=== PATIENT | male | born 1980 | race Caucasian/White ===

== ENCOUNTER 2022-10-30 15:21 | Inpatient (IN) ==
--- NOTE | 2022-10-30 16:23 | Emergency Department Note ---
Impression & Plan Depression with suicidal ideation ED Provider Note NAME: YEE WARREN AGE: 42 SEX: M : 1980 ARRIVES VIA: Walk-In INFORMANT: Patient, ED PROVIDER(S): Dawood Vargas MD CHIEF COMPLAINT: Mental wellness concern, outpatient referral MEDICAL DECISION MAKING: Patient presents due to concern for mental wellness concerns and associated suicidal ideation with plan. Blood work was obtained along with urinalysis drug and toxicology screen. Patient's blood work shows a normal white count H&H and platelet count. Kidney function is unremarkable with normal electrolytes. Urinalysis negative for blood or infection urine drug screen salicylate Tylenol and alcohol negative. Patient was seen and evaluated by psych community case manager and referrals were made for inpatient treatment. Patient is currently voluntary. Patient was excepted to [facility] for inpatient psychiatric treatment. Prior /Outside records reviewed: None Differential diagnosis: Mood disorder, infection, hypoglycemia, electrolyte abnormalities, cardiac s ources, intracerebral event, toxicologic, trauma, neurologic, as well as other pathologies. HPI: Patient presents as an outpatient referral due to concern for suicidal ideation with plan to purchase a gun in order to harm himself. The patient states that he has been going through some marital issues and has been going to some point health from her marital counseling. Patient states that work is going okay but has been stressful "trying to juggle everything." Patient denies any access to guns or weapons at this time and does feel safe at home. Patient denies any HI or AVH. The patient states that his sleep is okay once he falls asleep but is not getting enough of it. Patient states that his appetite is okay. Patient states he is employed. Patient denies any alcohol tobacco or dr ug use. PAST MEDICAL HISTORY: No pertinent past medical history PAST SURGICAL HISTORY: No pertinent past surgical history SOCIAL HISTORY: , denies alcohol tobacco or drug use. Currently employed. HOME MEDICATIONS: See Below ALLERGIES: See Below VITALS: See Below PHYSICAL EXAMINATION: GENERAL: NAD, non-toxic. EYE EXAM: Normal conjunctiva. PERRL, no anisocoria and EOM's grossly intact w/o pain. OROPHARYNX: Moist mucus membranes, grossly normal dentition. NECK: Supple, no nuchal rigidity, no adenopathy, non-tender. No signs of meningismus. FROM of the neck with good chin to chest and neck extension. No stridor. LUNGS: Clear to auscultation. Normal chest wall mechanics. HEART: NSR, no MRG. ABDOMEN: Abdomen soft, non-tender, no masses, no rebound or guarding. BACK: No CVA TTP. SKIN: No rashes and no bruising. UPPER EXTREMITIES: Upper extremities are grossly normal. LOWER EXTREMITIES: Grossly normal, no edema. NEURO EXAM: A&O x3, cranial nerves II-XII grossly intact, normal speech, moves all 4 extremities. Psych: Depressed mood, poor eye contact, positive SI with plan, negative HI or AVH. 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 Required: No Beliefs That Will Affect Care: None Feels Safe at Home: Yes Gender Identity: Male Assistive Devices: Glasses Allergies Allergies Allergy/AdvReac Type Severity Reaction Status Date / Time No Known Allergies Allergy Unverified 10/30/22 17:22 Home Meds Home Medications Medication Instructions Recorded Confirmed azelaic acid 15 % topical gel 1 applic topical AMPM 10/30/22 10/30/22 Results & Data (ED) Vital Signs Vital Signs - 24 hr 10/30/22 15:29 Temperature 36.4 C L Temperature Source Temporal Artery Scan Pulse Rate 56 L Respiratory Rate 17 Blood Pressure 143/88 H Blood Pressure Mean 106 Pulse Oximetry 97 Oxygen Delivery Method Room Air Sepsis Recent Fever Within 48 Hours No Sepsis New/Unexplained Change in Mental Status N/A Sepsis Action Taken by Nursing No Action Required Home Medications Current Medication List: was personally reviewed by me Laboratory Data Attestation: I reviewed the patient's lab results. 10/30/22 15:50 10/30/22 15:50 Lab Results 10/30/22 10/30/22 10/30/22 Range/Units 15:50 15:50 15:50 WBC 6.09 (4.8-10.8) K/ul RBC 4.82 (4.70-6.10) M/uL Hgb 14.8 (14.0-18.0) g/dl Hct 41.6 L (42.0-52.0) % MCV 86.3 (80.0-100.0) fL MCH 30.7 (25.0-34.0) pg MCHC 35.6 (32.0-36.0) g/dL RDW Std Deviation 36.8 (36.4-46.3) fL RDW Coeff of Kathryn 11.7 (11.5-14.5) % Plt Count 310 (130-400) K/uL MPV 9.7 (9.4-12.4) fL Immature Gran % (Auto) 0.3 % Neut % (Auto) 69.5 % Lymph % (Auto) 18.7 % Simpson % (Auto) 10.0 % Eos % (Auto) 0.5 % Baso % (Auto) 1.0 % Neut # (Auto) 4.23 (1.40-6.50) K/uL Lymph # (Auto) 1.14 L (1.2-3.4) K/uL Simpson # (Auto) 0.61 H (0.11-0.59) K/uL Eos # (Auto) 0.03 (0-0.50) K/uL Baso # (Auto) 0.06 (0-0.2) K/uL Immature Gran # (Auto) 0.02 (0.01-0.20) K/uL Sodium 141 (136-145) mmol/L Potassium 3.6 (3.5-5.1) mmol/L Chloride 105 (98-107) mmol/L Carbon Dioxide 31 (21-32) mmol/L Anion Gap 5 (3-11) BUN 12 (6-23) mg/dl Creatinine 0.92 (0.6-1.4) mg/dl Est Cr Clr Drug Dosing 104.1 ml/min Est GFR ( Amer) 116.8 ml/min Est GFR (Non-Af Amer) 100.8 ml/min BUN/Creatinine Ratio 13.0 (10-20) Glucose 85 (70-99(Fasting)) mg/dl Calcium 9.6 (8.6-10.3) mg/dl Total Bilirubin 0.5 (0.2-1.0) mg/dl AST 17 (13-39) U/L ALT 13 (7-52) U/L Alkaline Phosphatase 40 (34-104) U/L Total Protein 7.2 (6.0-8.3) gm/dl Albumin 4.6 (3.4-5.0) gm/dl Globulin 2.6 (2.5-4.0) gm/dl Albumin/Globulin Ratio 1.8 (0.9-2) TSH 0.639 (0.300-4.500) uIu/ml Urine Color Urine Appearance (Clear) Urine pH (4.5-7.5) Ur Specific [place] (1.000-1.030) Urine Protein (Negative) Urine Glucose (UA) (Negative) Urine Ketones (Negative) Urine Blood (Negative) Urine Nitrite (Negative) Urine Bilirubin (Negative) Urine Urobilinogen (Negative) Ur Leukocyte Esterase (Negative) Salicylates (3.0-30) mg/dl Urine Opiates Screen (Neg) Ur Methadone, Qual (Neg) Acetaminophen (10-30) ug/ml Urine Barbiturates (Neg) Ur Phencyclidine (PCP) (Neg) U Amphetamin/Meth Scrn (Neg) MDMA (Ecstasy) Screen (Neg) U Benzodiazepines Scrn (Neg) Ur Cocaine Metabolite (Neg) U Marijuana (THC) Screen (Neg) Ethyl Alcohol mg/dL (<10.0) mg/dl SARS-CoV-2, RNA, NAAT (NEGATIVE) 10/30/22 10/30/22 10/30/22 Range/Units 15:50 15:50 15:50 WBC (4.8-10.8) K/ul RBC (4.70-6.10) M/uL Hgb (14.0-18.0) g/dl Hct (42.0-52.0) % MCV (80.0-100.0) fL MCH (25.0-34.0) pg MCHC (32.0-36.0) g/dL RDW Std Deviation (36.4-46.3) fL RDW Coeff of Kathryn (11.5-14.5) % Plt Count (130-400) K/uL MPV (9.4-12.4) fL Immature Gran % (Auto) % Neut % (Auto) % Lymph % (Auto) % Simpson % (Auto) % Eos % (Auto) % Baso % (Auto) % Neut # (Auto) (1.40-6.50) K/uL Lymph # (Auto) (1.2-3.4) K/uL Simpson # (Auto) (0.11-0.59) K/uL Eos # (Auto) (0-0.50) K/uL Baso # (Auto) (0-0.2) K/uL Immature Gran # (Auto) (0.01-0.20) K/uL Sodium (136-145) mmol/L Potassium (3.5-5.1) mmol/L Chloride (98-107) mmol/L Carbon Dioxide (21-32) mmol/L Anion Gap (3-11) BUN (6-23) mg/dl Creatinine (0.6-1.4) mg/dl Est Cr Clr Drug Dosing ml/min Est GFR ( Amer) ml/min Est GFR (Non-Af Amer) ml/min BUN/Creatinine Ratio (10-20) Glucose (70-99(Fasting)) mg/dl Calcium (8.6-10.3) mg/dl Total Bilirubin (0.2-1.0) mg/dl AST (13-39) U/L ALT (7-52) U/L Alkaline Phosphatase (34-104) U/L Total Protein (6.0-8.3) gm/dl Albumin (3.4-5.0) gm/dl Globulin (2.5-4.0) gm/dl Albumin/Globulin Ratio (0.9-2) TSH (0.300-4.500) uIu/ml Urine Color Urine Appearance (Clear) Urine pH (4.5-7.5) Ur Specific [place] (1.000-1.030) Urine Protein (Negative) Urine Glucose (UA) (Negative) Urine Ketones (Negative) Urine Blood (Negative) Urine Nitrite (Negative) Urine Bilirubin (Negative) Urine Urobilinogen (Negative) Ur Leukocyte Esterase (Negative) Salicylates < 3.0 L (3.0-30) mg/dl Urine Opiates Screen (Neg) Ur Methadone, Qual (Neg) Acetaminophen < 3 L (10-30) ug/ml Urine Barbiturates (Neg) Ur Phencyclidine (PCP) (Neg) U Amphetamin/Meth Scrn (Neg) MDMA (Ecstasy) Screen (Neg) U Benzodiazepines Scrn (Neg) Ur Cocaine Metabolite (Neg) U Marijuana (THC) Screen (Neg) Ethyl Alcohol mg/dL < 10.0 (<10.0) mg/dl SARS-CoV-2, RNA, NAAT NEGATIVE (NEGATIVE) 10/30/22 10/30/22 Range/Units 16:41 16:41 WBC (4.8-10.8) K/ul RBC (4.70-6.10) M/uL Hgb (14.0-18.0) g/dl Hct (42.0-52.0) % MCV (80.0-100.0) fL MCH (25.0-34.0) pg MCHC (32.0-36.0) g/dL RDW Std Deviation (36.4-46.3) fL RDW Coeff of Kathryn (11.5-14.5) % Plt Count (130-400) K/uL MPV (9.4-12.4) fL Immature Gran % (Auto) % Neut % (Auto) % Lymph % (Auto) % Simpson % (Auto) % Eos % (Auto) % Baso % (Auto) % Neut # (Auto) (1.40-6.50) K/uL Lymph # (Auto) (1.2-3.4) K/uL Simpson # (Auto) (0.11-0.59) K/uL Eos # (Auto) (0-0.50) K/uL Baso # (Auto) (0-0.2) K/uL Immature Gran # (Auto) (0.01-0.20) K/uL Sodium (136-145) mmol/L Potassium (3.5-5.1) mmol/L Chloride (98-107) mmol/L Carbon Dioxide (21-32) mmol/L Anion Gap (3-11) BUN (6-23) mg/dl Creatinine (0.6-1.4) mg/dl Est Cr Clr Drug Dosing ml/min Est GFR ( Amer) ml/min Est GFR (Non-Af Amer) ml/min BUN/Creatinine Ratio (10-20) Glucose (70-99(Fasting)) mg/dl Calcium (8.6-10.3) mg/dl Total Bilirubin (0.2-1.0) mg/dl AST (13-39) U/L ALT (7-52) U/L Alkaline Phosphatase (34-104) U/L Total Protein (6.0-8.3) gm/dl Albumin (3.4-5.0) gm/dl Globulin (2.5-4.0) gm/dl Albumin/Globulin Ratio (0.9-2) TSH (0.300-4.500) uIu/ml Urine Color Yellow Urine Appearance Clear (Clear) Urine pH 6.5 (4.5-7.5) Ur Specific [place] 1.006 (1.000-1.030) Urine Protein Negative (Negative) Urine Glucose (UA) Negative (Negative) Urine Ketones Negative (Negative) Urine Blood Negative (Negative) Urine Nitrite Negative (Negative) Urine Bilirubin Negative (Negative) Urine Urobilinogen Negative (Negative) Ur Leukocyte Esterase Negative (Negative) Salicylates (3.0-30) mg/dl Urine Opiates Screen Neg (Neg) Ur Methadone, Qual Neg (Neg) Acetaminophen (10-30) ug/ml Urine Barbiturates Neg (Neg) Ur Phencyclidine (PCP) Neg (Neg) U Amphetamin/Meth Scrn Neg (Neg) MDMA (Ecstasy) Screen Neg (Neg) U Benzodiazepines Scrn Neg (Neg) Ur Cocaine Metabolite Neg (Neg) U Marijuana (THC) Screen Neg (Neg) Ethyl Alcohol mg/dL (<10.0) mg/dl SARS-CoV-2, RNA, NAAT (NEGATIVE) Discharge Plan Visit Data Chief Complaint: Mental Health Evaluation Stated Complaint: DEPRESSION,SUICIDAL,MHE ED Provider: Dawood Vargas Discharge Problem: Depression with suicidal ideation Patient Disposition: Admitted As Inpatient Discharge Instructions Interventions: ED Discharge Assessment Last Done: 10/30/22 20:24
[2022-10-30 16:46] LABS: Basophils # (auto) 0.06 K/uL (0-0.2); Eosinophils # (auto) 0.03 K/uL (0-0.50); Eosinophils % (auto) 0.5 %; Hematocrit (blood only) 41.6 % (42.0-52.0); Hemoglobin 14.8 g/dl (14.0-18.0); Immature Granulocytes # (auto) 0.02 K/uL (0.01-0.20); Immature Granulocytes % (auto) 0.3 %; Lymphocytes # (auto) 1.14 K/uL (1.2-3.4); Lymphocytes % (auto) 18.7 %; Mean Corpuscular Hemoglobin 30.7 pg (25.0-34.0); Mean Corpuscular Hgb Conc 35.6 g/dL (32.0-36.0); Mean Corpuscular Volume 86.3 fL (80.0-100.0); Mean Platelet Volume 9.7 fL (9.4-12.4); Monocytes # (auto) 0.61 K/uL (0.11-0.59); Neutrophils # (auto) 4.23 K/uL (1.40-6.50); Neutrophils % (auto) 69.5 %; Platelet Count 310 K/uL (130-400); RDW Coefficient of Variation 11.7 % (11.5-14.5); RDW Standard Deviation 36.8 fL (36.4-46.3); Red Blood Count 4.82 M/uL (4.70-6.10); White Blood Count 6.09 K/ul (4.8-10.8)
[2022-10-30 16:56] LABS: Albumin Level 4.6 gm/dl (3.4-5.0); Bilirubin,Total 0.5 mg/dl (0.2-1.0); Calcium 9.6 mg/dl (8.6-10.3); Potassium 3.6 mmol/L (3.5-5.1)
[2022-10-30 17:01] LABS: Acetaminophen < 3 ug/ml (10-30); Salicylate < 3.0 mg/dl (3.0-30)
[2022-10-30 17:02] LABS: Albumin Globulin Ratio 1.8 (0.9-2); Creatinine Clr Calc Pharmacy 104.1 ml/min; Est GFR (African American) 116.8 ml/min; Est GFR (Non-African American) 100.8 ml/min; Globulin 2.6 gm/dl (2.5-4.0); Total Protein 7.2 gm/dl (6.0-8.3)
[2022-10-30 17:23] LABS: Appearance Urine Clear (Clear); Bilirubin Urine Negative (Negative); Blood Urine Negative (Negative); Color Urine Yellow; Glucose Urine UA Negative (Negative); Ketones Urine Negative (Negative); Leukocyte Esterase Urine Negative (Negative); Nitrite Urine Negative (Negative); Protein Urine Negative (Negative); Specific Gravity Urine 1.006 (1.000-1.030); Urobilinogen Urine Negative (Negative); pH Urine 6.5 (4.5-7.5)
[2022-10-30 17:52] LABS: Amphetamines+Metham, Urine Neg (Neg); Barbiturates, Urine Neg (Neg); Benzodiazepine, Urine Neg (Neg); Cocaine, Urine Neg (Neg); MDMA (Ecstacy), Urine Neg (Neg); Methadone, Urine Neg (Neg); Opiate, Urine Neg (Neg); Phencyclidine, Urine Neg (Neg)
[2022-10-30] MEDS ORDERED: ALUMINUM/MAGNESIUM SUSP 30 ML UDC PO PRN (21:24)
[2022-10-30] MEDS ORDERED: SODIUM CHLORIDE 0.65% NA SOLN 45 ML (OCEAN) PRN (21:24)
[2022-10-30] MEDS ORDERED: BISMUTH SUBSALICYLATE LIQD 236 ML PO PRN (21:24)
[2022-10-30] MEDS ORDERED: MAGNESIUM HYDROXIDE SUSP 30 ML UDC PO PRN (21:24)
[2022-10-30] MEDS ORDERED: ACETAMINOPHEN 325 MG TAB PO PRN (21:24)
[2022-10-30] MEDS ORDERED: hydrOXYzine HCl 25 MG TAB PO PRN ×2 (21:24)
--- NOTE | 2022-10-31 06:19 | History & Physical ---
Date of Service October 31, 2022 Impression / Recommendations Impression 42 year old man with no formal psychiatric history with worsening of depression and increasingly intrusive SI, now thinking about buying a gun, in the context of increased marriage strain and self-guilt and shame. Diagnostically most consistent with unspecified depression with differential including major depressive disorder with anxious distress with periods of increased irritability that seems to turn into self-directed harm versus possible BPAD type II given episode of elevated mood/increased risk taking/increased impulsivity this spring followed by ongoing periods of impulsivity and what he feels are dramatic mood shifts. He is deemed in need of psychiatric hospitalization for diagnostic clarification, safety and stabilization, medication management and development of further coping skills. Discussed medication treatment options including possible SSRI and/or mood stabilizer/augmentation such as abilify but first want to clarify possible BPAD type II with hypomanic episode. He is agreeable to fasting blood work and agrees to complete a mood disorder questionnaire to help with determining most appropriate medication route. (1) Depression with suicidal ideation: (2) Major depressive disorder with current active episode: Plan 10/31/2022: The patient was admitted to the [facility] ([facility] mental health unit) on q15 min checks (behavioral with suicide precautions) for safety. The patient will participate in group, recreational, and milieu therapies and will be offered additional individual and family sessions as clinically von ropriate. 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 Chief Complaint "I have intense feelings of guilt for what I did and shame for how I could do this". History of Present Illness Oliverio presents for psychiatric admission for worsening depression and SI with possible plans of purchasing a gun and fears he may impulsively act on these thoughts. His worsening mood and increasing SI over the last 2 weeks is in the context of multiple psychosocial stressors including current marital strain with worsening self-guilt related to this as well as juggling work and other res ponsibilities. He notes he can develop episodes of intense anger which he directs at himself by hitting himself up to a few times per week and sometimes scratches his arms noting this feels like "self-directed rage". He reports current depressive symptoms including low self-worth, shame, self-guilt, decreased attention to self-care, decreased sleep and SI. He is not currently prescribed any psychiatric medications. Psychiatric ROS notable for no current nor history of symptoms of psychosis, PTSD, nor eating disorder. History of social anxiety and at one point developed obsessional habit about constantly checking his email due to concern for missing something. Concern for possible episodes of brief mood elevations in the past as he notes he can get "very excited" about things he is interested in and in his 20s had similar impulsive episodes of anger where he broke a glass and hit a door but did a mindfulness-based stress reduction course which helped him for many years. This spring he recalls sleeping a little less (5-7 hours per night), felt "on top of the world", was less rule following compared to his usual self (recalls driving through yellow lights in his eagerness to get to work), increased drive to work/be productive, and his noticing that she felt like he was acting differently than his usual self. However, no clearly defined periods throughout time, rather briefer episodes of mood elevation. Additional recent history per ED CM note from 10/30/2022: "Today, patient was at an appointment with his marriage counselor, Cecilia Cooper at [facility] along with his ; and patient revealed that he has been having suicidal thoughts coming/going for the past week, denies any previous suicidal ideations or attempts. Patient was sent to the ED by the recommendation of his therapist for further evaluation and admission. Patient reports one minute he feels good, but very quickly everything can turn bad. When he feels like this he feels un safe with his thoughts and believes he could act out impulsively. Patient has had thoughts to buy a gun, but has not done so. Patient admits to having an emotional affair with another person over the past year and his learned about this, he has since ended that relationship. Patient is carrying a lot of guilt and shame, feeling he is not the person he thought he was and then causes him to have intense feelings of rage. Patient reports he dealt with these rage thoughts early in his marriage, but worked through them with outside help. Patient reports depressive symptoms as crying, feelings of helpless/hopelessness, self-devaluation, guilt, poor concentration and decrease sleep. Patient reports self-harm of slapping himself when he has these elevated moods." Past Psychiatric History Current Psychiatric Diagnosis: unspecified depressive disorder Outpatient Services: marriage counseling at [facility], intake for inidividual therapy on 11/18/2022 at [facility] Previous Psych Admissions: none Do You Have Access To A Gun?: No History of Previous Suicide Attempt: No Past Medication Trials: none Past Head Trauma/Neuro History History of Concussion/Seizure: No Allergies Allergy/AdvReac Type Severity Reaction Status Date / Time No Known Allergies Allergy Unverified 10/31/22 14:53 Home Medications Medication Instructions Recorded Confirmed Type azelaic acid 15 % topical gel 1 applic topical AMPM 10/30/22 10/30/22 History Family History Family History of: Other-List under Comment (father had episodes of anger at times) and Suicide Completion (paternal cousin) Alcohol History Hx of Alcohol Use Over the Past 12 Months: Yes (2-4x/month, 1-2 drinks) AUDIT Total Score: 2 Smoking Use Have You Smoked or Used Tobacco Products in the Last 30 Days: No Smoking Status: Never smoker Substance History Hx of Prescription Med Misuse Over the Past 12 Months: No Hx of Over the Counter Med Misuse Over the Past 12 Months: No Hx of Inhalent Misuse Over the Past 12 Months: No Hx of Organic Substance Use Over the Past 12 Months: No Hx of Illegal Substances/Street Drug Use Over Past 12 Months: No Problems as a Result of Past Substance Use: None Identified Personal History Living Arrangements: Home Highest Grade Completed: Graduate School ([employer] ) 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[employer]) Marital Status: Number Of Children: 2 sons Beliefs That Will Affect Care: None Current Legal Problems: No Hx Legal Problems: No Patient History Social History Smoking Status: Never smoker Preferred Language: Bhutanese Communication Ability: Effective Senior Principal Required: No Beliefs That Will Affect Care: None Feels Safe at Home: Yes Gender Identity: Male Assistive Devices: Glasses Review of Systems Review of Systems: All systems reviewed & are unremarkable except as noted in HPI & below Physical Exam Psychiatric: Orientation: alert and oriented x 3 Apperance: appropriately dressed and appropriately groomed Eye Contact: good eye contact Motor Behavior: no abnormal motor movements Speech: normal rate/rhythm/volume of speech Affect: + depressed affect and + anxious affect Mood: + depressed mood and + anxious mood Thought Process: goal directed thought process Thought Content: reality based without delusions Suicidal Thoughts: denies suicidal thoughts (feels safe in the hospital), denies suicidal plan and denies suicidal intent Homicidal Thoughts: denies homicidal thoughts Hallucinations: no auditory hallucinations and no visual hallucinations Cognition: recent memory grossly intact, remote memory grossly intact, attention grossly intact and language grossly intact Estimated Intelligence: consistent with education level Insight: + fair insight Judgment: + limited judgement Vital Signs (Past 24 Hours): Last Vital Signs Temp 36.7 C 10/30/22 20:56 Pulse 52 L 10/30/22 20:56 Resp 14 10/30/22 20:56 BP 136/84 10/30/22 20:56 Pulse Ox 99 10/30/22 20:56 O2 Del Method Room Air 10/30/22 20:56 Exam Statement: A physical exam was performed in the ED by Dr. Vargas for the purposes of medical clearance. I accept that physical as correct and adequate for the purposes of the inpatient physical exam. Results & Data ([facility]) Laboratory Results Laboratory Results - last 24 hr 10/30/22 10/30/22 10/30/22 15:50 15:50 15:50 WBC 6.09 RBC 4.82 Hgb 14.8 Hct 41.6 L MCV 86.3 MCH 30.7 MCHC 35.6 RDW Std Deviation 36.8 RDW Coeff of Kathryn 11.7 Plt Count 310 MPV 9.7 Immature Gran % (Auto) 0.3 Neut % (Auto) 69.5 Lymph % (Auto) 18.7 [place] % (Auto) 10.0 Eos % (Auto) 0.5 Baso % (Auto) 1.0 Neut # (Auto) 4.23 Lymph # (Auto) 1.14 L [place] # (Auto) 0.61 H Eos # (Auto) 0.03 Baso # (Auto) 0.06 Immature Gran # (Auto) 0.02 Sodium 141 Potassium 3.6 Chloride 105 Carbon Dioxide 31 Anion Gap 5 BUN 12 Creatinine 0.92 Est Cr Clr Drug Dosing 104.1 Est GFR ( Amer) 116.8 Est GFR (Non-Af Amer) 100.8 BUN/Creatinine Ratio 13.0 Glucose 85 Calcium 9.6 Total Bilirubin 0.5 AST 17 ALT 13 Alkaline Phosphatase 40 Total Protein 7.2 Albumin 4.6 Globulin 2.6 Albumin/Globulin Ratio 1.8 TSH 0.639 Urine Color Urine Appearance Urine pH Ur Specific Cyril Urine Protein Urine Glucose (UA) Urine Ketones Urine Blood Urine Nitrite Urine Bilirubin Urine Urobilinogen Ur Leukocyte Esterase Salicylates Urine Opiates Screen Ur Methadone, Qual Acetaminophen Urine Barbiturates Ur Phencyclidine (PCP) U Amphetamin/Meth Scrn MDMA (Ecstasy) Screen U Benzodiazepines Scrn Ur Cocaine Metabolite U Marijuana (THC) Screen Ethyl Alcohol mg/dL SARS-CoV-2, RNA, NAAT 10/30/22 10/30/22 10/30/22 15:50 15:50 15:50 WBC RBC Hgb Hct MCV MCH MCHC RDW Std Deviation RDW Coeff of Kathryn Plt Count MPV Immature Gran % (Auto) Neut % (Auto) Lymph % (Auto) [place] % (Auto) Eos % (Auto) Baso % (Auto) Neut # (Auto) Lymph # (Auto) [place] # (Auto) Eos # (Auto) Baso # (Auto) Immature Gran # (Auto) Sodium Potassium Chloride Carbon Dioxide Anion Gap BUN Creatinine Est Cr Clr Drug Dosing Est GFR ( Amer) Est GFR (Non-Af Amer) BUN/Creatinine Ratio Glucose Calcium Total Bilirubin AST ALT Alkaline Phosphatase Total Protein Albumin Globulin Albumin/Globulin Ratio TSH Urine Color Urine Appearance Urine pH Ur Specific C[place]il Urine Protein Urine Glucose (UA) Urine Ketones Urine Blood Urine Nitrite Urine Bilirubin Urine Urobilinogen Ur Leukocyte Esterase Salicylates < 3.0 L Urine Opiates Screen Ur Methadone, Qual Acetaminophen < 3 L Urine Barbiturates Ur Phencyclidine (PCP) U Amphetamin/Meth Scrn MDMA (Ecstasy) Screen U Benzodiazepines Scrn Ur Cocaine Metabolite U Marijuana (THC) Screen Ethyl Alcohol mg/dL < 10.0 SARS-CoV-2, RNA, NAAT NEGATIVE 10/30/22 10/30/22 16:41 16:41 WBC RBC Hgb Hct MCV MCH MCHC RDW Std Deviation RDW Coeff of Kathryn Plt Count MPV Immature Gran % (Auto) Neut % (Auto) Lymph % (Auto) [place] % (Auto) Eos % (Auto) Baso % (Auto) Neut # (Auto) Lymph # (Auto) [place] # (Auto) Eos # (Auto) Baso # (Auto) Immature Gran # (Auto) Sodium Potassium Chloride Carbon Dioxide Anion Gap BUN Creatinine Est Cr Clr Drug Dosing Est GFR ( Amer) Est GFR (Non-Af Amer) BUN/Creatinine Ratio Glucose Calcium Total Bilirubin AST ALT Alkaline Phosphatase Total Protein Albumin Globulin Albumin/Globulin Ratio TSH Urine Color Yellow Urine Appearance Clear Urine pH 6.5 Ur Specific Cyril 1.006 Urine Protein Negative Urine Glucose (UA) Negative Urine Ketones Negative Urine Blood Negative Urine Nitrite Negative Urine Bilirubin Negative Urine Urobilinogen Negative Ur Leukocyte Esterase Negative Salicylates Urine Opiates Screen Neg Ur Methadone, Qual Neg Acetaminophen Urine Barbiturates Neg Ur Phencyclidine (PCP) Neg U Amphetamin/Meth Scrn Neg MDMA (Ecstasy) Screen Neg U Benzodiazepines Scrn Neg Ur Cocaine Metabolite Neg U Marijuana (THC) Screen Neg Ethyl Alcohol mg/dL SARS-CoV-2, RNA, NAAT Current Inpatient Medications Current Inpatient Medications: Current Inpatient Medications Acetaminophen (Acetaminophen 325 Mg Tab) 650 mg PO Q4H PRN PRN Reason: Headache or Minor Fever Stop: 11/29/22 21:23 Al Hydrox/Mg Hydrox/Simethicone (Aluminum/Magnesium Susp 30 Ml Udc) 30 ml PO Q4H PRN PRN Reason: GI Upset Stop: 11/29/22 21:23 Bismuth Subsalicylate (Bismuth Subsalicylate Liqd 236 Ml) 15 ml PO PRN PRN PRN Reason: Loose Stool Stop: 11/29/22 21:23 Hydroxyzine HCl (Hydroxyzine Hcl 25 Mg Tab) 50 mg PO HSZ PRN PRN Reason: Insomnia Stop: 11/29/22 21:23 Hydroxyzine HCl (Hydroxyzine Hcl 25 Mg Tab) 25 mg PO Q4H PRN PRN Reason: Anxiety Stop: 11/29/22 21:23 Magnesium Hydroxide (Magnesium Hydroxide Susp 30 Ml Udc) 30 ml PO DAILY PRN PRN Reason: Constipation Stop: 11/29/22 21:23 Sodium Chloride (Sodium Chloride 0.65% Na Soln 45 Ml ([place])) 1 - 2 sprays NA PRN PRN PRN Reason: Nasal Dryness/Congestion Stop: 11/29/22 21:23
[2022-11-01 07:56] LABS: Chol HDL Ratio 2.9 (0-5)
[2022-11-01] MEDS: ARIPiprazole 5 MG TAB PO SCH (13:34)
--- NOTE | 2022-11-01 15:10 | Psychiatric Progress Note ---
Date of Service November 01, 2022 Impression / Recommendations Impression 42 year old man with no formal psychiatric history with worsening of depression and increasingly intrusive SI, now thinking about buying a gun, in the context of increased marriage strain and self-guilt and shame. Diagnostically most consistent with unspecified depression with differential including major depressive disorder with anxious distress with periods of increased irritability that seems to turn into self-directed harm versus possible BPAD type II given episode of elevated mood/increased risk taking/increased impulsivity this spring followed by ongoing periods of impulsivity and what he feels are dramatic mood shifts. He is deemed in need of psychiatric hospitalization for diagnostic clarification, safety and stabilization, medication management and development of further coping skills. 11/01/22: Reviewed impression by Dr. Sterling in italics. appears mainly flat on unit. (1) Depression with suicidal ideation: (2) Major depressive disorder with current active episode: Plan 11/01/2022: Risks/benefits/alternatives were reviewed re: antipsychotics for mood/depression. Discussion included but was not limited to metabolic side effects, risks of TD and suicidal thoughts. There were no abnormal motor movements at baseline. Abilify 2.5 mg daily to start today. 10/31/2022: The patient was admitted to the [facility] ([facility] inpatient mental health unit) on q15 min checks (behavioral with suicide precautions) for safety. The patient will participate in group, recreational, and milieu therapies and will be offered additional individual and family sessions as clinically appropriate. 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, engaging in therapy, willing to get treatment Needs: safety and stabilization, medication adjustment, additional coping skills, increased outpatient services Suicide Risk Level Suicide Risk Level: High-Moderate (q15 min suicide checks) Risk Factors Assessment Male: Yes : Yes Do You Have Access To A Gun?: No Health Problems: No Mental Health Diagnoses: Yes Substance Use Disorders: No Previous Attempt: No Family History of Suicide: No Previous Psychiatric Hospitalization: No Protective Factors Assessment : Yes (but strained) 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 Chief Complaint "these changes went on for a year before I really noticed." Review of Systems Sleep Information Total Hours of Sleep: 6.5 Sleep Comments: pt on q-15 minute checks Meal Information Percent Meal Consumed - Breakfast: 100 Percent Meal Consumed - Lunch: 100 Percent Meal Consumed - Dinner: 100 Subjective Subjective Patient was seen & assessed and interval progress reviewed with nursing and social work. Reviewed mood disorder questionnaire as patient endorsed atypical symptoms of depression with irritability, more impulsive behavior. As none of the behaviors were extreme in that noticed by people other than , he expressed he is unsure what was making himself feel better/acknowledged when not feeling that at home vs. true increase in goal directed behavior. His guilt and his shame have increased since starting marital therapy which then triggered SI. Reviewed labs and he is agreeable to trial of Abilify as discussed yesterday. 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 He was not able to denote how many hours of work he was working a week, admitted much of the time was related to the "emotional affair." Physical Exam Psychiatric Orientation: alert and oriented x 3 Apperance: appropriately dressed and appropriately groomed Eye Contact: good eye contact Motor Behavior: no abnormal motor movements Speech: normal rate/rhythm/volume of speech Affect: + depressed affect Mood: + depressed mood Thought Process: goal directed thought process Thought Content: reality based without delusions Suicidal Thoughts: denies suicidal thoughts Homicidal Thoughts: denies homicidal thoughts Hallucinations: no auditory hallucinations and no visual hallucinations Cognition: attention grossly intact and language grossly intact Estimated Intelligence: consistent with education level Insight: + fair insight Judgment: + limited judgement Vital Signs (Past 24 Hours) Last Vital Signs Temp 36.6 C 11/01/22 06:39 Pulse 60 11/01/22 06:40 Resp 16 11/01/22 06:39 BP 129/85 11/01/22 06:40 Pulse Ox 99 10/30/22 20:56 O2 Del Method Room Air 10/30/22 20:56 Results & Data ([facility]) Laboratory Results Laboratory Results - last 24 hr 11/01/22 07:15 Fasting Glucose 88 Triglycerides 64 Cholesterol 156 LDL Cholesterol, Calc 90 VLDL Cholesterol, Calc 13 HDL Cholesterol 53 Cholesterol/HDL Ratio 2.9 Current Inpatient Medications Current Inpatient Medications: Current Inpatient Medications Acetaminophen (Acetaminophen 325 Mg Tab) 650 mg PO Q4H PRN PRN Reason: Headache or Minor Fever Stop: 11/29/22 21:23 Al Hydrox/Mg Hydrox/Simethicone (Aluminum/Magnesium Susp 30 Ml Udc) 30 ml PO Q4H PRN PRN Reason: GI Upset Stop: 11/29/22 21:23 Aripiprazole (Aripiprazole 5 Mg Tab) 2.5 mg PO QAM SHANIQUA Stop: 12/01/22 13:19 Last Admin: 11/01/22 13:34 Dose: 2.5 mg Bismuth Subsalicylate (Bismuth Subsalicylate Liqd 236 Ml) 15 ml PO PRN PRN PRN Reason: Loose Stool Stop: 11/29/22 21:23 Hydroxyzine HCl (Hydroxyzine Hcl 25 Mg Tab) 50 mg PO HSZ PRN PRN Reason: Insomnia Stop: 11/29/22 21:23 Hydroxyzine HCl (Hydroxyzine Hcl 25 Mg Tab) 25 mg PO Q4H PRN PRN Reason: Anxiety Stop: 11/29/22 21:23 Magnesium Hydroxide (Magnesium Hydroxide Susp 30 Ml Udc) 30 ml PO DAILY PRN PRN Reason: Constipation Stop: 11/29/22 21:23 Sodium Chloride (Sodium Chloride 0.65% Na Soln 45 Ml ([place])) 1 - 2 sprays NA PRN PRN PRN Reason: Nasal Dryness/Congestion Stop: 11/29/22 21:23 Mental Health & Subst Abuse Tx Therapist Name of Therapist: [facility] - Dr. Fernando Therapist's Date of Therapist Appointment: 11/18/2022 Time of Therapist Appointment: 1 PM Therapy Appointment Comment: [address], [place] [id number] Shanker Out Name of Shanker Out: none Post Discharge Appointments Primary Care Physician Name Of Family Doctor/PCP: [facility] - Dr. Ha Harvey Primary [facility] Date of Future Appointment with PCP: 11/13/22 Time of Appointment with PCP: arrive by 3:05 PM Provider Appointment Comment: [id number], [place] [address] Contact Information Discharge Discharge Address: [address], [place] [address]
[2022-11-02] MEDS: ARIPiprazole 5 MG TAB PO SCH (08:21)
--- NOTE | 2022-11-02 13:39 | Psychiatric Progress Note ---
Date of Service November 02, 2022 Impression / Recommendations Impression 42 year old man with no formal psychiatric history with worsening of depression and increasingly intrusive SI, now thinking about buying a gun, in the context of increased marriage strain and self-guilt and shame. Diagnostically most consistent with unspecified depression with differential including major depressive disorder with anxious distress with periods of increased irritability that seems to turn into self-directed harm versus possible BPAD type II given episode of elevated mood/increased risk taking/increased impulsivity this spring followed by ongoing periods of impulsivity and what he feels are dramatic mood shifts. He is deemed in need of psychiatric hospitalization for diagnostic clarification, safety and stabilization, medication management and development of further coping skills. 11/02/22: Reviewed impression by Dr. Sterling in italics. tolerating Abilify (1) Depression with suicidal ideation: (2) Major depressive disorder with current active episode: Plan 11/02/2022: continue Abilify trial. 11/01/2022: Risks/benefits/alternatives were reviewed re: antipsychotics for mood/depression. Discussion included but was not limited to metabolic side effects, risks of TD and suicidal thoughts. There were no abnormal motor movements at baseline. Abilify 2.5 mg daily to start today. 10/31/2022: The patient was admitted to the [facility] ([facility] inpatient mental health unit) on q15 min checks (behavioral with suicide precautions) for safety. The patient will participate in group, recreational, and milieu therapies and will be offered additional individual and family sessions as clinically appropriate. 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, engaging in therapy, willing to get treatment Needs: safety and stabilization, medication adjustment, additional coping skills, increased outpatient services Suicide Risk Level Suicide Risk Level: Moderate (q15 min suicide checks) Risk Factors Assessment Male: Yes : Yes Do You Have Access To A Gun?: No Health Problems: No Mental Health Diagnoses: Yes Substance Use Disorders: No Previous Attempt: No Family History of Suicide: No Previous Psychiatric Hospitalization: No Protective Factors Assessment : Yes (but strained) 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 Chief Complaint marital stressors Review of Systems Sleep Information Total Hours of Sleep: 7 Sleep Comments: pt on q-15 minute checks Meal Information Percent Meal Consumed - Breakfast: 100 Percent Meal Consumed - Lunch: 100 Percent Meal Consumed - Dinner: 100 Subjective Subjective Patient was seen & assessed and interval progress reviewed with nursing and social work. Appropriate in the milieu and during visit with . No evidence of impulse control issue. Patient is tolerating Abilify with minimal afternoon sedation. Discussed parameters for family meeting as his main barriers to safety planning are fears about how they continue to process/talk about their issues--he has been working from home and allowing his phone to be tracked, staying up until 2-3 am, etc but not sustainable. Physical Exam Psychiatric Orientation: alert and oriented x 3 Apperance: appropriately dressed and appropriately groomed Eye Contact: good eye contact Motor Behavior: no abnormal motor movements Speech: normal rate/rhythm/volume of speech Affect: + depressed affect Mood: + depressed mood Thought Process: goal directed thought process Thought Content: reality based without delusions Suicidal Thoughts: denies suicidal thoughts Homicidal Thoughts: denies homicidal thoughts Hallucinations: no auditory hallucinations and no visual hallucinations Cognition: attention grossly intact and language grossly intact Estimated Intelligence: consistent with education level Vital Signs (Past 24 Hours) Last Vital Signs Temp 36.6 C 11/02/22 06:39 Pulse 62 11/02/22 06:39 Resp 16 11/02/22 06:39 BP 119/70 11/02/22 06:39 Pulse Ox 99 10/30/22 20:56 O2 Del Method Room Air 10/30/22 20:56 Results & Data ([facility]) Current Inpatient Medications Current Inpatient Medications: Current Inpatient Medications Acetaminophen (Acetaminophen 325 Mg Tab) 650 mg PO Q4H PRN PRN Reason: Headache or Minor Fever Stop: 11/29/22 21:23 Al Hydrox/Mg Hydrox/Simethicone (Aluminum/Magnesium Susp 30 Ml Udc) 30 ml PO Q4H PRN PRN Reason: GI Upset Stop: 11/29/22 21:23 Aripiprazole (Aripiprazole 5 Mg Tab) 2.5 mg PO QAM SHANIQUA Stop: 12/01/22 13:19 Last Admin: 11/02/22 08:21 Dose: 2.5 mg Bismuth Subsalicylate (Bismuth Subsalicylate Liqd 236 Ml) 15 ml PO PRN PRN PRN Reason: Loose Stool Stop: 11/29/22 21:23 Hydroxyzine HCl (Hydroxyzine Hcl 25 Mg Tab) 50 mg PO HSZ PRN PRN Reason: Insomnia Stop: 11/29/22 21:23 Hydroxyzine HCl (Hydroxyzine Hcl 25 Mg Tab) 25 mg PO Q4H PRN PRN Reason: Anxiety Stop: 11/29/22 21:23 Magnesium Hydroxide (Magnesium Hydroxide Susp 30 Ml Udc) 30 ml PO DAILY PRN PRN Reason: Constipation Stop: 11/29/22 21:23 Sodium Chloride (Sodium Chloride 0.65% Na Soln 45 Ml ([place])) 1 - 2 sprays NA PRN PRN PRN Reason: Nasal Dryness/Congestion Stop: 11/29/22 21:23 Mental Health & Subst Abuse Tx Therapist [facility] Therapist's Date of Therapist Appointment: 11/18/2022 Time of Therapist Appointment: 1 PM Therapy Appointment Comment: [address], [place] [address] Food Scientist Name of Food Scientist: none Post Discharge Appointments Primary Care Physician Name Of Family Doctor/PCP: [facility] Dr. Ha Harvey Primary Care Date of Future Appointment with PCP: 11/13/22 Time of Appointment with PCP: arrive by 3:05 PM Provider Appointment Comment: [id number], [place] [address] Contact Information Discharge Discharge Address: [address], [place] [address]
[2022-11-03] MEDS: ARIPiprazole 5 MG TAB PO SCH (08:19)
--- NOTE | 2022-11-03 14:28 | Psychiatric Progress Note ---
Date of Service November 03, 2022 Impression / Recommendations Impression 42 year old man with no formal psychiatric history with worsening of depression and increasingly intrusive SI, now thinking about buying a gun, in the context of increased marriage strain and self-guilt and shame. Diagnostically most consistent with unspecified depression with differential including major depressive disorder with anxious distress with periods of increased irritability that seems to turn into self-directed harm versus possible BPAD type II given episode of elevated mood/increased risk taking/increased impulsivity this spring followed by ongoing periods of impulsivity and what he feels are dramatic mood shifts. He is deemed in need of psychiatric hospitalization for diagnostic clarification, safety and stabilization, medication management and development of further coping skills. 11/03/22: Reviewed impression by Dr. Sterling in italics. processing family meeting (1) Depression with suicidal ideation: (2) Major depressive disorder with current active episode: Plan 11/03/2022: continue Abilify 2.5 mg as had some mild sedation, finalize safety planning 11/02/2022: continue Abilify trial. 11/01/2022: Risks/benefits/alternatives were reviewed re: antipsychotics for mood/depression. Discussion included but was not limited to metabolic side effects, risks of TD and suicidal thoughts. There were no abnormal motor mov ements at baseline. Abilify 2.5 mg daily to start today. 10/31/2022: The patient was admitted to the [facility] ([facility] mental health unit) on q15 min checks (behavioral with suicide precautions) for safety. The patient will participate in group, recreational, and milieu therapies and will be offered additional individual and family sessions as clinically appropriate. 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, engaging in therapy, willing to get treatment Needs: safety and stabilization, medication adjustment, additional coping skills, increased outpatient services Suicide Risk Level Suicide Risk Level: Moderate (q15 min suicide checks) Risk Factors Assessment Male: Yes : Yes Do You Have Access To A Gun?: No Health Problems: No Mental Health Diagnoses: Yes Substance Use Disorders: No Previous Attempt: No Family History of Suicide: No Previous Psychiatric Hospitalization: No Protective Factors Assessment : Yes (but strained) 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 Chief Complaint "I'm processing alot" Review of Systems Sleep Information Total Hours of Sleep: 6.5 Sleep Comments: pt on q-15 minute checks Meal Information Percent Meal Consumed - Breakfast: 100 Percent Meal Consumed - Lunch: 100 Percent Meal Consumed - Dinner: 100 Subjective Subjective Patient was seen & assessed and interval progress reviewed with treatment team. Joined family meeting with to discuss dx, boundaries, and medication plan. Patient was respectful/took notes. Obviously rebuilding trust and discussed using stress scale to depersonalize interactions when need a break/some limits on their more heavy discussions outside of therapy. Tolerating medication. Physical Exam Psychiatric Orientation: alert and oriented x 3 Apperance: appropriately dressed and appropriately groomed Eye Contact: good eye contact Motor Behavior: no abnormal motor movements Speech: normal rate/rhythm/volume of speech Affect: + depressed affect Mood: + depressed mood Thought Process: goal directed thought process Thought Content: reality based without delusions Suicidal Thoughts: denies suicidal thoughts, denies suicidal plan and denies suicidal intent Homicidal Thoughts: denies homicidal thoughts Hallucinations: no auditory hallucinations and no visual hallucinations Cognition: recent memory grossly intact, remote memory grossly intact, attention grossly intact and language grossly intact Estimated Intelligence: consistent with education level Insight: + fair insight Vital Signs (Past 24 Hours) Last Vital Signs Temp 36.7 C 11/03/22 06:35 Pulse 76 11/03/22 06:35 Resp 16 11/03/22 06:35 BP 138/82 11/03/22 06:35 Pulse Ox 99 10/30/22 20:56 O2 Del Method Room Air 10/30/22 20:56 Results & Data ([facility]) Current Inpatient Medications Current Inpatient Medications: Current Inpatient Medications Acetaminophen (Acetaminophen 325 Mg Tab) 650 mg PO Q4H PRN PRN Reason: Headache or Minor Fever Stop: 11/29/22 21:23 Al Hydrox/Mg Hydrox/Simethicone (Aluminum/Magnesium Susp 30 Ml Udc) 30 ml PO Q4H PRN PRN Reason: GI Upset Stop: 11/29/22 21:23 Aripiprazole (Aripiprazole 5 Mg Tab) 2.5 mg PO QAM SHANIQUA Stop: 12/01/22 13:19 Last Admin: 11/03/22 08:19 Dose: 2.5 mg Bismuth Subsalicylate (Bismuth Subsalicylate Liqd 236 Ml) 15 ml PO PRN PRN PRN Reason: Loose Stool Stop: 11/29/22 21:23 Hydroxyzine HCl (Hydroxyzine Hcl 25 Mg Tab) 50 mg PO HSZ PRN PRN Reason: Insomnia Stop: 11/29/22 21:23 Hydroxyzine HCl (Hydroxyzine Hcl 25 Mg Tab) 25 mg PO Q4H PRN PRN Reason: Anxiety Stop: 11/29/22 21:23 Magnesium Hydroxide (Magnesium Hydroxide Susp 30 Ml Udc) 30 ml PO DAILY PRN PRN Reason: Constipation Stop: 11/29/22 21:23 Sodium Chloride (Sodium Chloride 0.65% Na Soln 45 Ml ([place])) 1 - 2 sprays NA PRN PRN PRN Reason: Nasal Dryness/Congestion Stop: 11/29/22 21:23 Mental Health & Subst Abuse Tx Psychiatrist Name of Psychiatrist: Laurel Jung PA-C Psychiatrist's Date Of Appointment With Psychiatric Provider: 12/04/22 Time of Appointment with Psychiatrist: 8:45 AM Psychiatric Appointment Comment: [address], [place] [address] Therap[facility] - Dr. Fernando Therapist's Date of Therapist Appointment: 11/18/2022 Time of Therapist Appointment: 1 PM Therapy Appointment Comment: [address], [place] [address] Headstart Teacher Name of Headstart Teacher: none Post Discharge Appointments Primary Care Physician Name Of Family Doctor/PCP: [facility] Dr. Ha Blanca Primary Care Date of Future Appointment with PCP: 11/13/22 Time of Appointment with PCP: arrive by 3:05 PM Provider Appointment Comment: [phone], [place] [address] Contact Information Discharge Discharge Address: [address], [place] [address]
[2022-11-04] MEDS: ARIPiprazole 5 MG TAB PO SCH (07:44)
--- NOTE | 2022-11-04 15:05 | Discharge Summary ---
Date of Service November 04, 2022 History of Present Illness As per Dr. Sterling on admission: Oliverio presents for psychiatric admission for worsening depression and SI with possible plans of purchasing a gun and fears he may impulsively act on these thoughts. His worsening mood and increasing SI over the last 2 weeks is in the context of multiple psychosocial stressors including current marital strain with worsening self-guilt related to this as well as juggling work and other responsibilities. He notes he can develop episodes of intense anger which he directs at himself by hitting himself up to a few times per week and sometimes scratches his arms noting this feels like "self-directed rage". He reports cu rrent depressive symptoms including low self-worth, shame, self-guilt, decreased attention to self-care, decreased sleep and SI. He is not currently prescribed any psychiatric medications. Psychiatric ROS notable for no current nor history of symptoms of psychosis, PTSD, nor eating disorder. History of social anxiety and at one point developed obsessional habit about constantly checking his email due to concern for missing something. Concern for possible episodes of brief mood elevations in the past as he notes he can get "very excited" about things he is interested in and in his 20s had similar impulsive episodes of anger where he broke a glass and hit a door but did a mindfulness-based stress reduction course which helped him for many years. This spring he recalls sleeping a little less (5-7 hours per night), felt "on top of the world", was less rule following compared to his usual self (recalls driving through yellow lights in his eagerness to get to work), increased drive to work/be productive, and his noticing that she felt like he was acting differently than his usual self. However, no clearly defined periods throughout time, rather briefer episodes of mood elevation. Additional recent history per ED CM note from 10/30/2022: "Today, patient was at an appointment with his marriage counselor, Cecilia Cooper at [facility] along with his ; and patient revealed that he has been having suicidal thoughts coming/going for the past week, denies any previous suicidal ideations or attempts. Patient was sent to the ED by the recommendation of his therapist for further evaluation and admission. Patient reports one minute he feels good, but very quickly everything can turn bad. When he feels like this he feels unsafe with his thoughts and believes he could act out impulsively. Patient has had thoughts to buy a gun, but has not done so. Patient admits to having an emotional affair with another person over the past year and his learned about this, he has since ended that relationship. Patient is carrying a lot of guilt and shame, feeling he is not the person he thought he was and then causes him to have intense feelings of rage. Patient reports he dealt with these rage thoughts early in his marriage, but worked through them with outside help. Patient reports depressive symptoms as crying, feelings of helpless/hopelessness, self-devaluation, guilt, poor concentration and decrease sleep. Patient reports self-harm of slapping himself when he has these elevated moods." Physical Exam Psychiatric See admission H&P and DOD assessment. Vital Signs (Past 24 Hours) Last Vital Signs Temp 37 C 11/04/22 09:43 Pulse 52 L 11/04/22 09:43 Resp 16 11/04/22 09:43 BP 136/84 11/04/22 09:43 Pulse Ox 99 11/04/22 09:43 O2 Del Method Room Air 10/30/22 20:56 Principal Diagnosis major depressive disorder Psychiatric Data See daily stay summary. In short, safety was maintained and the patient was cooperative with care. Medication changes included a trial of Abilify and they tolerated this well with plan to increase to 5 mg upon discharge. A family s ession was held with the patient's to discuss diagnostic impressions and discuss boundaries/transition home. A safety plan was completed prior to discharge. Oliverio's symptoms, primarily personality change, started approximately 10 months coinciding with finishing [employer] and transitioning to various promotions. He initially noted stress/anxiety then a period of hyperproductivity then became more depressed, primarily irritability as starting couples therapy due to shame/guilt over marital issues and dealing with higher level of expressed emotion in the marriage. Although he did not meet criteria for bipolar II, it was determined his depressive features may respond better/more quickly to a mood stabilizer with future consideration for a more traditional antidepressant trial. Day of Discharge Assessment Today the patient voices readiness for discharge. They note improvement in mood and deny thoughts to harm self or others. Thoughts remain organized and they are improved from admission. There is no evidence of psychosis. They agree to take mediations as prescribed and keep follow-up appointments. They are stable for discharge to outpatient level of care. Transition of Care Transition Of Care Record: was reviewed with the patient Advance Directives Advance Directives Information Provided: Yes Advance Directives: No Mental Health Advance Directive: No Advance Directives on File: No Living Will: No Power of Director Agency & Strategic Partnerships: No Advance Directives Reason:: Declines as Mental Health Visit. Suicide Risk Level Suicide Risk Level Comments: Suicide risk at discharge is deemed low as the patient is no longer requiring 24-hr monitoring, has a safety plan, and is free of suicidal ideation at discharge. 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) Stable Relationships: Yes Good Rapport with Provider: Yes Tobacco Cessation at Discharge Tobacco Cessation Medication Prescribed at Discharge: Not Applicable/Non-Smoker Total Time Total Time Spent: Greater Than 30 Minutes Total Time Includes: Examination of the patient, Discharge Planning and Medication Reconciliation Discharge Data Lab Results 10/30/22 10/30/22 10/30/22 15:50 15:50 15:50 WBC 6.09 RBC 4.82 Hgb 14.8 Hct 41.6 L MCV 86.3 MCH 30.7 MCHC 35.6 RDW Std Deviation 36.8 RDW Coeff of Kathryn 11.7 Plt Count 310 MPV 9.7 Immature Gran % (Auto) 0.3 Neut % (Auto) 69.5 Lymph % (Auto) 18.7 [place] % (Auto) 10.0 Eos % (Auto) 0.5 Baso % (Auto) 1.0 Neut # (Auto) 4.23 Lymph # (Auto) 1.14 L [place] # (Auto) 0.61 H Eos # (Auto) 0.03 Baso # (Auto) 0.06 Immature Gran # (Auto) 0.02 Sodium 141 Potassium 3.6 Chloride 105 Carbon Dioxide 31 Anion Gap 5 BUN 12 Creatinine 0.92 Est Cr Clr Drug Dosing 104.1 Est GFR ( Amer) 116.8 Est GFR (Non-Af Amer) 100.8 BUN/Creatinine Ratio 13.0 Glucose 85 Fasting Glucose Calcium 9.6 Total Bilirubin 0.5 AST 17 ALT 13 Alkaline Phosphatase 40 Total Protein 7.2 Albumin 4.6 Globulin 2.6 Albumin/Globulin Ratio 1.8 Triglycerides Cholesterol LDL Cholesterol, Calc VLDL Cholesterol, Calc HDL Cholesterol Cholesterol/HDL Ratio TSH 0.639 Urine Color Urine Appearance Urine pH Ur Specific [place] Urine Protein Urine Glucose (UA) Urine Ketones Urine Blood Urine Nitrite Urine Bilirubin Urine Urobilinogen Ur Leukocyte Esterase Salicylates Urine Opiates Screen Ur Methadone, Qual Acetaminophen Urine Barbiturates Ur Phencyclidine (PCP) U Amphetamin/Meth Scrn MDMA (Ecstasy) Screen U Benzodiazepines Scrn Ur Cocaine Metabolite U Marijuana (THC) Screen Ethyl Alcohol mg/dL SARS-CoV-2, RNA, NAAT 10/30/22 10/30/22 10/30/22 15:50 15:50 15:50 WBC RBC Hgb Hct MCV MCH MCHC RDW Std Deviation RDW Coeff of Kathryn Plt Count MPV Immature Gran % (Auto) Neut % (Auto) Lymph % (Auto) [place] % (Auto) Eos % (Auto) Baso % (Auto) Neut # (Auto) Lymph # (Auto) [place] # (Auto) Eos # (Auto) Baso # (Auto) Immature Gran # (Auto) Sodium Potassium Chloride Carbon Dioxide Anion Gap BUN Creatinine Est Cr Clr Drug Dosing Est GFR ( Amer) Est GFR (Non-Af Amer) BUN/Creatinine Ratio Glucose Fasting Glucose Calcium Total Bilirubin AST ALT Alkaline Phosphatase Total Protein Albumin Globulin Albumin/Globulin Ratio Triglycerides Cholesterol LDL Cholesterol, Calc VLDL Cholesterol, Calc HDL Cholesterol Cholesterol/HDL Ratio TSH Urine Color Urine Appearance Urine pH Ur Specific [place] Urine Protein Urine Glucose (UA) Urine Ketones Urine Blood Urine Nitrite Urine Bilirubin Urine Urobilinogen Ur Leukocyte Esterase Salicylates < 3.0 L Urine Opiates Screen Ur Methadone, Qual Acetaminophen < 3 L Urine Barbiturates Ur Phencyclidine (PCP) U Amphetamin/Meth Scrn MDMA (Ecstasy) Screen U Benzodiazepines Scrn Ur Cocaine Metabolite U Marijuana (THC) Screen Ethyl Alcohol mg/dL < 10.0 SARS-CoV-2, RNA, NAAT NEGATIVE 10/30/22 10/30/22 11/01/22 16:41 16:41 07:15 WBC RBC Hgb Hct MCV MCH MCHC RDW Std Deviation RDW Coeff of Kathryn Plt Count MPV Immature Gran % (Auto) Neut % (Auto) Lymph % (Auto) [place] % (Auto) Eos % (Auto) Baso % (Auto) Neut # (Auto) Lymph # (Auto) [place] # (Auto) Eos # (Auto) Baso # (Auto) Immature Gran # (Auto) Sodium Potassium Chloride Carbon Dioxide Anion Gap BUN Creatinine Est Cr Clr Drug Dosing Est GFR ( Amer) Est GFR (Non-Af Amer) BUN/Creatinine Ratio Glucose Fasting Glucose 88 Calcium Total Bilirubin AST ALT Alkaline Phosphatase Total Protein Albumin Globulin Albumin/Globulin Ratio Triglycerides 64 Cholesterol 156 LDL Cholesterol, Calc 90 VLDL Cholesterol, Calc 13 HDL Cholesterol 53 Cholesterol/HDL Ratio 2.9 TSH Urine Color Yellow Urine Appearance Clear Urine pH 6.5 Ur Specific [place] 1.006 Urine Protein Negative Urine Glucose (UA) Negative Urine Ketones Negative Urine Blood Negative Urine Nitrite Negative Urine Bilirubin Negative Urine Urobilinogen Negative Ur Leukocyte Esterase Negative Salicylates Urine Opiates Screen Neg Ur Methadone, Qual Neg Acetaminophen Urine Barbiturates Neg Ur Phencyclidine (PCP) Neg U Amphetamin/Meth Scrn Neg MDMA (Ecstasy) Screen Neg U Benzodiazepines Scrn Neg Ur Cocaine Metabolite Neg U Marijuana (THC) Screen Neg Ethyl Alcohol mg/dL SARS-CoV-2, RNA, NAAT Hospital Course (1) Depression with suicidal ideation: (2) Major depressive disorder with current active episode: Plan 11/03/2022: continue Abilify 2.5 mg as had some mild sedation, finalize safety planning 11/02/2022: continue Abilify trial. 11/01/2022: Risks/benefits/alternatives were reviewed re: antipsychotics for mood/depression. Discussion included but was not limited to metabolic side effects, risks of TD and suicidal thoughts. There were no abnormal motor movements at baseline. Abilify 2.5 mg daily to start today. 10/31/2022: The patient was admitted to the [facility] ([facility]) on q15 min checks (behavioral with suicide precautions) for safety. The patient will participate in group, recreational, and milieu therapies and will be offered additional individual and family sessions as clinically appropriate. -Mood disorder questionnaire which he will work on -Fasting glucose and lipid panel in AM in anticipation of possible abilify trial Mental Health & Subst Abuse Tx Psychiatrist Name of Psychiatrist: [facility] - Guera Jung PA-C Psychiatrist's Date Of Appointment With Psychiatric Provider: 12/04/22 Time of Appointment with Psychiatrist: 8:45 AM Psychiatric Appointment Comment: [address] [facility], [place] [address] Psychiatrist Release of Information: Obtained, Reviewed and Signed Therapist Name of Therapist: [facility] - Dr. Fernando Therapist's Date of Therapist Appointment: 11/18/2022 Time of Therapist Appointment: 1 PM Therapy Appointment Comment: [address], [place] [address] Therapist Release of Information: Obtained, Reviewed and Signed Soiled Linen Distributor Name of Soiled Linen Distributor: none Post Discharge Appointments Primary Care Physician Name Of Family Doctor/PCP: [facility] - Dr. Ha Harvey Primary Care Date of Future Appointment with PCP: 11/13/22 Time of Appointment with PCP: arrive by 3:05 PM Provider Appointment Comment: [address], [place] [address] Primary Care Release of Information: Obtained, Reviewed and Signed Smoking Cessation Counseling Tobacco Cessation Medication Prescribed at Discharge: Not Applicable/Non-Smoker Other #1: Name of Aftercare Appointment: [facility] - Cecilia Cooper LPC Phone Number of Aftercare Appointment: [phone] Time of Aftercare Appointment: [address], [place] [address] Aftercare Appointment Comment: Please resume your normal schedule. Contact Information Discharge Discharge Address: [facility] [address], [place] [address] Discharge Plan Discharge Items Patient Disposition: Home - Self-Care Reason For Visit: UNSPECIFIED DEPRESSIVE DISORDER Discharge Diagnosis: major depressive disorder Activity: Resume your previous activity Non-emergency contact: Primary Care Provider, Psychiatrist and Therapist Call non-emergency contact if: you have any medication questions and your symptoms worsen Follow-up/Referrals: PCP,NO [Primary Care Provider] - Diet: Regular Addtl Attending Provider Instructions: SPECIAL CARE INSTRUCTIONS: 1. Follow through with your scheduled aftercare appointments. If unable to keep an appointment, please call to reschedule. 2. Take your medication only as prescribed. Medication should not be changed or stopped without the approval of your doctor. In the event of worsening symptoms or concerns about side effects, contact your doctor immediately. 3. Utilize new healthy coping skills, anger management skills, and stress management skills learned during your hospitalization. Journal feelings and process them with a support person. Identify stressors or situations that may result in relapse, deterioration or inappropriate behaviors and develop a plan to deal with those issues. 4. If your coping skills are ineffective and you are in crisis, contact your outpatient providers for direction. If unable to reach your providers, please call the [facility] CRISIS LINE AT , go to the [facility] walk-in center at [address], [address], [place], or go to the closest Emergency Room. 5. Avoid alcohol and un-prescribed drugs. 6. You have been provided with the Mental Health Advance Directives Pamphlet for your review. 7. Your condition is stable for discharge to outpatient level of care, but recovery is an ongoing process. Ifthoughts to harm yourself or others return, follow the safety plan developed during your stay. Planning for a safe return home includes securing weapons. Our treatment team recommends weaponsbe removed from the home until your outpatient provider reassesses your progress. In rare cases where the items themselvescannot be removed, guns and ammunitionshould be secured separatelyand keys stored by a reliable personoutside of the home. If you were admitted on an involuntary commitment, the police or other legal authorities may be involved in this process. AFTERCARE APPOINTMENTS: * Please call your insurance company prior to your scheduled appointment to confirm your aftercare providers are covered. Take your insurance information to your appointments. WHO TO CALL AND WHEN: Medical Emergencies: For questions or emergencies related to your hospital stay, please contact the Inpatient Behavioral Health Unit at [phone]. A property adjuster is on-call 13/10 for the Behavioral Health Unit for emergencies At any time you feel your situation is an emergency, you may also call 911 immediately. Pending Studies at Discharge: No Stand-Alone Forms: [facility], Smoking Cessation Medications and DC Order Prescriptions: New aripiprazole [Abilify] 5 mg Tablet 5 mg PO QAM Qty: 30 0RF Continued azelaic acid 15 % gel 1 applic TOPICAL AMPM Qty: 50 0RF Discharge Orders: Discharge Order (Routine); Ordered 11/04/22 Ordered By: Blanca Peña Admission Data Admit Date/Time: 10/30/22 20:21 Attending Provider: Blanca Peña Admit Provider: Raeann Sterling Primary Care Provider: PCP,NO Other Interventions: Discharge Summary Assessment (RN) Last Done: 11/04/22 09:43 PSY Interdisciplinary Discharge Planning Last Done: 11/04/22 07:52 Coding Level of Care Code 54933 D/C day mgmt > 30 min Diagnoses Depression with suicidal ideation F32.A; R45.851 Major depressive disorder with current active episode F32.9
== END 2022-11-04 10:37 | disposition home or self-care (01) | DRG 885 ==
LOC: ED 15:21 → 3S 20:21 → SUATTDRO 20:21 → 3S 20:24